=== PATIENT | male | born 1970 | race African-American/Black ===

== ENCOUNTER 2023-06-28 03:52 | Day surgery (SDC) | payer OTHER ==
[2023-06-22 16:28] VITALS: BMI 26.8
[2023-06-28] MEDS ORDERED: BUPIVACAINE HCL/PF 0.5% (5MG/ML) 10 ML VIAL ONE ×2 (07:20→07:40)
[2023-06-28] MEDS ORDERED: LIDOCAINE 1%/EPI 1:100000 (20 ML MULTI DOSE VIAL) ONE ×2 (07:20→07:41)
[2023-06-28] MEDS ORDERED: THROMBIN (BOVINE) 5,000 UNIT VIAL TP ONE (07:40)
[2023-06-28] MEDS ORDERED: PROPOFOL 40 ML ONE (10:31)
[2023-06-28] MEDS ORDERED: ROCURONIUM BROMIDE 50 MG/5 ML SYRINGE ONE (10:32)
[2023-06-28] MEDS ORDERED: SUCCINYLCHOLINE CHLORIDE 200 MG/10 ML SYRINGE ONE (10:32)
[2023-06-28] MEDS ORDERED: MIDAZOLAM HCL 2 MG/2 ML SINGLE DOSE VIAL ONE (10:32)
[2023-06-28] MEDS ORDERED: FENTANYL CITRATE/PF 50 MCG/ML VIAL ONE ×6 (10:32→15:55)
[2023-06-28] MEDS ORDERED: HYDROmorphone HCl 2 MG/ML VIAL ONE (11:14)
[2023-06-28] MEDS: BUPIVACAINE HCL/PF 0.5% (5 MG/ML) 30 ML VIAL IJ ONE (11:22)
[2023-06-28] MEDS: LIDOCAINE 1%/EPI 1:100000 (20 ML MULTI DOSE VIAL) IJ ONE (11:22)
[2023-06-28] MEDS ORDERED: GLYCOPYRROLATE 0.2 MG/1 ML VIAL ONE (11:33)
[2023-06-28] MEDS ORDERED: ACETAMINOPHEN INJECTION 100 ML IVPB ONE (12:58)
[2023-06-28] MEDS ORDERED: ONDANSETRON 4 MG/2 ML VIAL IVPUSH PRN (13:51)
[2023-06-28] MEDS ORDERED: oxyCODONE HCL 5 MG TABLET PO PRN ×2 (13:51)
[2023-06-28] MEDS ORDERED: LACTATED RINGERS SOLUTION 1,000 ML IV SCH (14:00)
[2023-06-28] MEDS ORDERED: LIDOCAINE HCL/PF 2% SDV 5ML VIAL ONE (14:03)
[2023-06-28] MEDS: MICROFIBRILLAR COLLAGEN 1 GM EACH TP ONE (14:21)
[2023-06-28] MEDS ORDERED: PROPOFOL 20 ML ONE (14:38)
[2023-06-28] MEDS: LACTATED RINGERS SOLUTION 1,000 ML IV SCH (16:06)
[2023-06-28] MEDS ORDERED: CALCIUM CARBONATE 650 MG TABLET PO ONE (17:29)
[2023-06-28 18:49] VITALS: RESP 20
[2023-06-28] MEDS: ACETAMINOPHEN 325 MG TABLET (FP) PO SCH (21:35)
[2023-06-28] MEDS: CALCIUM CARBONATE 650 MG TABLET PO ONE (21:36)
[2023-06-28] MEDS: CALCITRIOL 0.25 MCG CAPSULE (FP) PO ONE (21:37)
[2023-06-29 07:58] LABS: POTASSIUM 4.8 mmol/L (3.5-5.1)
[2023-06-29 08:05] LABS: BLOOD UREA NITROGEN 16.7 mg/dL (7-18); CALCIUM 8.9 mg/dL (8.5-10.1)
[2023-06-29] MEDS: CALCITRIOL 0.25 MCG CAPSULE (FP) PO SCH (09:49)
[2023-06-29] MEDS: CALCIUM (OYSTER SHELL) 500 MG TABLET (FP) PO SCH (09:49)
[2023-06-29] MEDS: VALSARTAN 160 MG TABLET PO SCH (09:50)
[2023-06-29] MEDS: HYDROCHLOROTHIAZIDE 25 MG TABLET (FP) PO SCH (09:50)
[2023-06-29] MEDS: SPIRONOLACTONE 25 MG TABLET PO SCH (09:50)
[2023-06-29] MEDS ORDERED: PATIENT'S OWN MEDICATION (NON-FORMULARY) (Spironolact/Hydrochlorothiazid [Spironolactone-H PO SCH (10:00)
[2023-06-29] MEDS ORDERED: CALCIUM CARBONATE 650 MG TABLET PO ONE (15:16)
[2023-06-29 15:57] VITALS: BP 135/87; PULSE 82; TEMP 98.2
== END 2023-06-29 17:31 | disposition home or self-care (01) ==
LOC: JASUSAT 03:52 → JASU-SURG 03:52 → J8W 18:18 → JASUSAT 06-29 17:31
PROVIDERS: ATTEND Surgery
PROC: 0GTK0ZZ Resection of Thyroid Gland, Open Approach (ICD-10-PCS; principal; 2023-06-28 10:00)
DX: E05.00 Thyrotoxicosis with diffuse goiter without thyrotoxic crisis or storm (principal)
CPT/HCPCS: 36415; 80048; 88307-TC; 94760; J0131